=== PATIENT | male | born 1950 | race Caucasian/White ===

== ENCOUNTER → 2016-11-25 | Day surgery (SDC) | payer OTHER ==
[~2016-11-25] VITALS: Ht 177.8 cm; Wt 95.7 kg
[~2016-11-25] MED LIST: ASPI1TAB PO; BUPIVACAINE/EPIN 0.25% 30 ML VIAL As Ordered ONE; CLINDAMYCIN 600 MG in APPROPRIATE DILUENT 1 EA IV ONE; GLYCOPYRROLATE INJ 0.2 MG/ML 2 ML VIAL As Ordered ONE; KETOROLAC 60 MG/2 ML VIAL (J1885) As Ordered ONE; LIDOCAINE 2% INJ 100 MG/5 ML SDV (FOR ANES.) As Ordered ONE; LOSA100T36 PO; LR 1,000 ML IV SCH; METO-209 PO; METOCLOPRAMIDE INJ 10MG/2ML VIAL (J2765) IV PRN; MIDAZOLAM INJ 2 MG/2 ML VIAL (J2250) As Ordered ONE; MORPHINE 10 MG/ML 1ML VIAL As Ordered ONE; NEOSTIGMINE 1MG/ML 5 ML SYRINGE (J2710) As Ordered ONE; ONDANSETRON 4MG/2ML VIAL (J2405) As Ordered ONE; ONDANSETRON 4MG/2ML VIAL (J2405) IV PRN; PROPOFOL 200 MG/20 ML VIAL As Ordered ONE; ROCURONIUM BROMIDE 50 MG/5 ML VIAL As Ordered ONE; SIMV10TA2 PO; VITA100054 PO; fentaNYL 100 MCG/2 ML INJECTION (J3010) IV PRN; fentaNYL 250 MCG/5 ML INJECTION (J3010) As Ordered ONE; hydrALAZINE INJ 20 MG/ML VIAL As Ordered ONE
[2016-11-25] MEDS: MORPHINE 2 MG/ML 1ML SYRINGE IV PRN ×4 (13:08→13:35)
[2016-11-25] MEDS: PERCOCET 5MG/325MG TAB PO PRN ×2 (13:10→13:46)
--- NOTE | 2016-11-25 15:23 | RO ---
DATE OF PROCEDURE: 11/25/2016 PREPROCEDURE DIAGNOSIS: Incarcerated incisional hernia. POSTPROCEDURE DIAGNOSIS: Incarcerated incisional hernia. PROCEDURE: Laparoscopic incarcerated incisional hernia repair. SURGEON: Dr. Cooper MARINE GEAR KEEPER: Dr. Cantu ANESTHESIA: General. ESTIMATED BLOOD LOSS: 10. COMPLICATIONS: None. INDICATIONS FOR PROCEDURE: The patient is a 65-year-old male who has had a previous open cholecystectomy through an upper midline incision over 20 years ago, presents with multiple midline incisional incarcerated hernias. Recommendation to proceed laparoscopic, possible open repair. Risks and benefits of the procedure, not limited to, but including bleeding, infection, hernia formation, hernia recurrence, damage to surrounding structures, need for further surgery were discussed in detail with the patient. Informed consent was obtained and the procedure was planned. PROCEDURE The patient brought back to operating room seven. After sufficient sedation, the abdomen was sterilely prepped and draped. Next, a time out was done to confirm proper patient and proper procedure. Following that, a 5 mm incision was made in left lower quadrant. Veress needle was inserted, and the abdomen was insufflated to 50 mmHg. Next, the Veress needle was removed. A 5 mm Optiview port was used to gain access to the abdomen. Once the abdomen was entered, there were multiple incarcerated hernias along the midline, extending from the xiphoid to the umbilicus with incarcerated fat and omentum in them. Next, another 5 mm port was placed in the left lower quadrant. Using the Enseal and a combination of blunt and sharp dissection, all of these hernias were carefully reduced. Once this was completed, the total defect from the superior, inferior and left to right was measured to be approximately 6 cm wide and approximately 17 cm in overall length. There were about ten separate defects throughout this range. The largest Parietex composite mesh that we had was a 20 x 15 rectangle. This was taken. 0 Vicryl sutures were placed in all four sides. The mesh was then placed inside the abdomen through the 5 mm port site. The Veress needle was then taken through four separate stab incisions to pull the transvaginal sutures out through the abdominal wall. Once they are pulled through, the insufflation of the abdomen was lowered to 12. The mesh was pulled tight and completely covered all of the defects, with at least 2-3 cm overlap on all sides. Once this was completed, the Secure Strap tacker was taken and a row of tacks was placed all the way around the perimeter of the mesh. Another row was placed just inside of this with a few random tacks scattered throughout the center of the mass just old it up in place and prevent it from tenting. Once this was all completed, the mesh was completely laid flat and all the defects were covered. The abdomen was then desufflated. Skin incisions were closed #4-0 Vicryl subcuticular sutures. The abdomen was cleaned and dried. Steri-Strips, 4x4, and tape were applied, thus ending procedure.
[2016-11-25 16:20] VITALS: BP 120/62
--- NOTE | 2016-11-25 18:30 | ECGEPIP ---
Stationary ECG Study [facility] Test Date: 2016-11-25 Pat Name: MILES ROTH Department: Room: - Gender: M [employer]: MARGARITA : 1950 Requested By: DIPTI Doss Order Number: [id number] Reading MD: Cruz Hendrix Measurements Intervals [place] Rate: 54 P: 37 OR: 144 QRS: -12 QRSD: 105 T: 5 QT: 391 QTc: 371 Interpretive Statements SINUS BRADYCARDIA NO PRIOR IN THE SYSTEM Electronically Signed On 11-25-2016 18:29:54 EST by Cruz Hendrix
== END | disposition home or self-care (01) ==
LOC: M SDC 08:49
PROVIDERS: ATTEND Surgery
DX: K43.0 Incisional hernia with obstruction, without gangrene (principal); I10 Essential (primary) hypertension; E78.5 Hyperlipidemia, unspecified; Z88.0 Allergy status to penicillin; Z79.82 Long term (current) use of aspirin; Z79.899 Other long term (current) drug therapy
CPT/HCPCS: 49655; 93005; C1781; J1885; J2250; J2405; J2710; J3010

== ENCOUNTER → 2022-04-03 | Outpatient (CLI) | payer MEDICARE ==
[~2022-04-03] MED LIST changes: -ASPI1TAB PO; +ASPI81TA26 PO; -BUPIVACAINE/EPIN 0.25% 30 ML VIAL As Ordered ONE; -CLINDAMYCIN 600 MG in APPROPRIATE DILUENT 1 EA IV ONE; -GLYCOPYRROLATE INJ 0.2 MG/ML 2 ML VIAL As Ordered ONE; -KETOROLAC 60 MG/2 ML VIAL (J1885) As Ordered ONE; -LIDOCAINE 2% INJ 100 MG/5 ML SDV (FOR ANES.) As Ordered ONE; -LOSA100T36 PO; +LOSA100T45 PO; -LR 1,000 ML IV SCH; -METO-209 PO; +METO1TAB33 PO; -METOCLOPRAMIDE INJ 10MG/2ML VIAL (J2765) IV PRN; -MIDAZOLAM INJ 2 MG/2 ML VIAL (J2250) As Ordered ONE; -MORPHINE 10 MG/ML 1ML VIAL As Ordered ONE; -NEOSTIGMINE 1MG/ML 5 ML SYRINGE (J2710) As Ordered ONE; -ONDANSETRON 4MG/2ML VIAL (J2405) As Ordered ONE; -ONDANSETRON 4MG/2ML VIAL (J2405) IV PRN; -PROPOFOL 200 MG/20 ML VIAL As Ordered ONE; -ROCURONIUM BROMIDE 50 MG/5 ML VIAL As Ordered ONE; -SIMV10TA2 PO; +SIMV10TA21 PO; -fentaNYL 100 MCG/2 ML INJECTION (J3010) IV PRN; -fentaNYL 250 MCG/5 ML INJECTION (J3010) As Ordered ONE; -hydrALAZINE INJ 20 MG/ML VIAL As Ordered ONE
== END ==
LOC: M WUC 11:06
PROVIDERS: ATTEND Nurse Practitioner Family
DX: M25.761 Osteophyte, right knee (principal); M85.88 Other specified disorders of bone density and structure, other site

== ENCOUNTER → 2022-04-29 | Outpatient (CLI) | payer MEDICARE | LOC: M SOG 08:47 | PROVIDERS: ATTEND Orthopaedic Surgery Adult Reconstructive Orthopaedic Surgery | DX: M25.561 Pain in right knee (principal) ==

== ENCOUNTER → 2022-07-03 | Outpatient (CLI) | payer MEDICARE | LOC: M RAD 11:04 | PROVIDERS: ATTEND Nurse Practitioner Family | DX: R22.1 Localized swelling, mass and lump, neck (principal) ==

== ENCOUNTER → 2022-08-21 | Outpatient (CLI) | payer MEDICARE ==
[~2022-08-21] MED LIST changes: +LIDOCAINE 1% MDV 20ML VIAL As Ordered ONE
[2022-08-21 10:06] VITALS: BP 173/82
== END ==
LOC: M IRPRO 09:20
PROVIDERS: ATTEND Otolaryngology
DX: D36.7 Benign neoplasm of other specified sites (principal)

== ENCOUNTER → 2024-09-03 | Outpatient (REF) | payer MEDICARE ==
[~2024-09-03] MED LIST changes: -LIDOCAINE 1% MDV 20ML VIAL As Ordered ONE; -LOSA100T45 PO; +LOSA100T46 PO
== END ==
LOC: M LAB REF 14:57
PROVIDERS: ATTEND Nurse Practitioner Family
DX: R35.0 Frequency of micturition (principal)